=== PATIENT | female | born 1975 | race Caucasian/White ===

== ENCOUNTER 2017-01-13 10:06 | Emergency (ER) | payer SELFPAY ==
[2017-01-13 11:47] VITALS: BP 112/57
[2017-01-13] MEDS ORDERED: Ibuprofen TAB* 600 MG PO ONE (11:57)
--- NOTE | 2017-01-13 12:10 | UC ---
Ear Complaint HPI - HPI Summary HPI Summary: Had fever and congestion, dx with influenza here at 3 days ago. Since then has had increasing L ear pain and productive cough. Continues to have elevated temperature today, pain is uncontrolled. - History of Current Complaint Chief Complaint: UCEar Stated Complaint: LEFT EAR PAIN Time Seen by Provider: 01/13/17 11:40 Hx Obtained From: Patient Hx Last Menstrual Period: 12/23/16 ?: No Onset/Duration: Gradual Onset, Lasting Days Severity Initially: Mild Severity Currently: Moderate Associated Signs/Symptoms: Positive: Hearing Loss, URI Symptoms - Allergies/Home Medications Allergies/Adverse Reactions: Allergies Allergy/AdvReac Type Severity Reaction Status Date / Time Acetaminophen [From Vicodin] Allergy Severe Anaphylatic Verified 01/13/17 11:40 Shock Codeine Allergy Severe Anaphylatic Verified 01/13/17 11:40 Shock Hydrocodone [From Vicodin] Allergy Severe Anaphylatic Verified 01/13/17 11:40 Shock Morphine and Related Allergy Severe Anaphylatic Verified 01/13/17 11:40 Shock Propoxyphene [From Darvon] Allergy Severe Anaphylatic Verified 01/13/17 11:40 Shock Macrolides Allergy Unknown Unknown Verified 01/13/17 11:40 Reaction Details Erythromycin AdvReac Severe Anaphylatic Verified 01/13/17 11:40 Shock Home Medications: Home Medications Ibuprofen TAB* [Advil TAB*] 400 mg PO Q6H PRN 01/13/17 [History Confirmed ] PMH/Surg Hx/FS Hx/Imm Hx Respiratory History Of: Reports: Asthma - Surgical History Surgical History: Yes Surgery Procedure, Year, and Place: EXCISION [facility] - Family History Known Family History: Negative: Blood Disorder - Social History Alcohol Use: Daily Alcohol Amount: 8 beers a day Substance Use Type: None Smoking Status (MU): Heavy Every Day Tobacco Smoker Type: Cigarettes Amount Used/How Often: 1 PPD Have You Smoked in the Last Year: Yes Household Exposure Type: Cigarettes - Immunization History Most Recent Influenza Vaccination: TWO WEEKS AGO Review of Systems Constitutional: Fever Skin: Negative Eyes: Negative ENT: Ear Ache Respiratory: Cough Cardiovascular: Negative Gastrointestinal: Negative Genitourinary: Negative Motor: Negative Neurovascular: Negative Musculoskeletal: Negative Neurological: Negative Psychological: Negative All Other Systems Reviewed And Are Negative: Yes Physical Exam Triage Information Reviewed: Yes Appearance: Pain Distress, Thin Vital Signs: Initial Vital Signs Temp 100.4 F 01/13/17 11:41 Pulse 102 01/13/17 11:41 Resp 18 01/13/17 11:41 BP 112/57 01/13/17 11:41 Pulse Ox 97 01/13/17 11:41 Vital Signs Reviewed: Yes Eye Exam: Normal Eyes: Positive: Conjunctiva Clear ENT: Positive: TM bulging - L, TM dull - L, TM red - L, Other: - R TM obstructed by cerumen Dental Exam: Normal Neck exam: Normal Respiratory Exam: Normal Respiratory: Positive: Chest non-tender, Lungs clear, Normal breath sounds, No respiratory distress, No accessory muscle use Cardiovascular: Positive: Tachycardia Musculoskeletal Exam: Normal Neurological Exam: Normal Neurological: Positive: Alert Psychological Exam: Other - weepy Skin Exam: Normal Ear Complaint Course/Dx - Differential Dx/Diagnosis Provider Diagnoses: influenza. L AOM. R cerumen impaction Discharge - Discharge Plan Condition: Stable Disposition: HOME Patient Education Materials: Otitis Media (ED), Influenza (ED) Referrals: Morena Aleman MD [Primary Care Provider] - Additional Instructions: Please get seen again if you are not fever-free with markedly reduced pain within 48 hours.
== END 2017-01-13 12:22 | disposition home or self-care (01) ==
LOC: UCCORT 10:06
DX: J11.1 Influenza due to unidentified influenza virus with other respiratory manifestations (principal); H66.92 Otitis media, unspecified, left ear; H61.21 Impacted cerumen, right ear; J45.909 Unspecified asthma, uncomplicated; Z88.6 Allergy status to analgesic agent; Z88.1 Allergy status to other antibiotic agents; Z88.5 Allergy status to narcotic agent; Z85.820 Personal history of malignant melanoma of skin; F17.210 Nicotine dependence, cigarettes, uncomplicated
CPT/HCPCS: 99212; A9270-GY; G0463

== ENCOUNTER 2017-05-16 13:25 | Emergency (ER) | payer MEDICAID ==
[2017-05-16 13:48] VITALS: BP 133/73
--- NOTE | 2017-05-16 14:32 | UC ---
Respiratory Complaint HPI - HPI Summary HPI Summary: This started with sneezing about 1 wk ago. coughing then started afterwards. she has pain with coughing no sob. she is a smoker.; she denies knowledge of copd but does often need prednisone and albuterol with bronchitis. she does have asthma. - History of Current Complaint Chief Complaint: UCRespiratory Stated Complaint: COUGH Time Seen by Provider: 05/16/17 14:17 Hx Obtained From: Patient Hx Last Menstrual Period: 05/13/17 Onset/Duration: Gradual Onset Timing: Constant Severity Initially: Mild Severity Currently: Moderate Character: Cough: Nonproductive Aggravating Factors: Recumbent Position Associated Signs And Symptoms: Positive: URI, Nasal Congestion - Allergies/Home Medications Allergies/Adverse Reactions: Allergies Allergy/AdvReac Type Severity Reaction Status Date / Time Codeine Allergy Severe Anaphylatic Verified 01/13/17 11:40 Shock Hydrocodone [From Vicodin] Allergy Severe Rash Verified 05/16/17 13:40 Morphine and Related Allergy Severe Airway Verified 05/16/17 13:40 Obstruction Propoxyphene [From Darvon] Allergy Severe Rash And Verified 05/16/17 13:40 Itching Macrolides Allergy Unknown Unknown Verified 05/16/17 13:40 Reaction Details Erythromycin AdvReac Severe Vomiting Verified 05/16/17 13:40 PMH/Surg Hx/FS Hx/Imm Hx Previously Healthy: No - asthma. Respiratory History: Asthma - Surgical History Surgical History: Yes Surgery Procedure, Year, and Place: [facility]CISION [facility] - Family History Known Family History: Positive: Other - no asthma. Negative: Blood Disorder - Social History Alcohol Use: Daily Alcohol Amount: 8 beers a day Substance Use Type: None Smoking Status (MU): Heavy Every Day Tobacco Smoker Type: Cigarettes Amount Used/How Often: 1 PPD Have You Smoked in the Last Year: Yes Household Exposure Type: Cigarettes - Immunization History Most Recent Influenza Vaccination: TWO WEEKS AGO Review of Systems Respiratory: Cough All Other Systems Reviewed And Are Negative: Yes Physical Exam Triage Information Reviewed: Yes Appearance: Well-Appearing, No Pain Distress, Well-Nourished Vital Signs: Initial Vital Signs Temp 98.5 F 05/16/17 13:41 Pulse 91 05/16/17 13:41 Resp 16 05/16/17 13:41 BP 133/73 05/16/17 13:41 Pulse Ox 100 05/16/17 13:41 Vital Signs Reviewed: Yes Eye Exam: Normal ENT Exam: Normal Dental Exam: Normal Neck exam: Normal Respiratory: Positive: Normal breath sounds, No respiratory distress, No accessory muscle use, Wheezing. Negative: Respiratory distress, Crackles, Rhonchi, Stridor Cardiovascular Exam: Normal Abdominal Exam: Normal Musculoskeletal Exam: Normal Neurological Exam: Normal Psychological Exam: Normal Skin Exam: Normal UC Diagnostic Evaluation - Laboratory O2 Sat by Pulse Oximetry: 100 Respiratory Course/Dx - Differential Dx/Diagnosis Differential Diagnosis/HQI/PQRI: Asthma, CHF, Influenza, Laryngitis, Lower Resp Infection, Pneumothorax, Pulmonary Embolism, Tuberculosis Provider Diagnoses: acute bronchitis. Discharge - Discharge Plan Condition: Good Disposition: HOME Prescriptions: Albuterol HFA INHALER* [Ventolin HFA Inhaler*] 1 - 2 puff INH Q4H PRN #1 mdi PRN Reason: Cough DOXYcycline CAP(*) [DOXYcycline 100MG CAP(*)] 100 mg PO BID #20 cap predniSONE TAB* [Deltasone TAB*] 20 mg PO DAILY #20 tab Patient Education Materials: Acute Bronchitis (ED) Referrals: Morena Almean MD [Primary Care Provider] - If Needed
== END 2017-05-16 14:36 | disposition home or self-care (01) ==
LOC: UCCORT 13:25
DX: J20.9 Acute bronchitis, unspecified (principal); Z88.5 Allergy status to narcotic agent; Z88.1 Allergy status to other antibiotic agents; F17.210 Nicotine dependence, cigarettes, uncomplicated
CPT/HCPCS: 99212; G0463

== ENCOUNTER 2018-04-29 13:13 | Emergency (ER) | payer MEDICAID, OTHER ==
[2018-04-29 13:39] VITALS: BP 139/81
--- NOTE | 2018-04-29 13:49 | UC ---
UC General HPI - HPI Summary HPI Summary: pt c/o 4 day hx sore throat, mostly on the L. no fever, acute cough, URI, SOB or fever. Has remote hx of skin melanoma and smokes so worried this could be CA. Requesting referral to Dr Almeida whom cares for her grandmother so he can check her deep throat. - History of Current Complaint Chief Complaint: UCGeneralIllness Stated Complaint: SORE THROAT Time Seen by Provider: 04/29/18 13:39 Hx Obtained From: Patient Hx Last Menstrual Period: 04/29/18 Onset/Duration: Gradual Onset Timing: Constant Pain Intensity: 5 Associated Signs & Symptoms: Positive: Cough - chronic. Negative: Fever, SOB - Allergy/Home Medications Allergies/Adverse Reactions: Allergies Allergy/AdvReac Type Severity Reaction Status Date / Time MS Codeine [Codeine] Allergy Severe Anaphylatic Verified 01/13/17 11:40 Shock MS Hydrocodone [From Vicodin] Allergy Severe Rash Verified 05/16/17 13:40 MS Morphine and Related Allergy Severe Airway Verified 05/16/17 13:40 [Morphine and Related] Obstruction MS Propoxyphene [From Darvon] Allergy Severe Rash And Verified 05/16/17 13:40 Itching MS Macrolides [Macrolides] Allergy Unknown Unknown Verified 05/16/17 13:40 Reaction Details MS Erythromycin AdvReac Severe Vomiting Verified 05/16/17 13:40 [Erythromycin] PMH/Surg Hx/FS Hx/Imm Hx - Additional Past Medical History Additional PMH: skin CA- melanoma, hypoglycemia Respiratory History: Asthma - Surgical History Surgical History: Yes Surgery Procedure, Year, and Place: [facility] - Family History Known Family History: Positive: Other - no asthma. Negative: Blood Disorder - Social History Occupation: Employed Full-time Alcohol Use: Daily Alcohol Amount: 8 beers a day Substance Use Type: None Smoking Status (MU): Heavy Every Day Tobacco Smoker Type: Cigarettes Amount Used/How Often: 1 PPD Have You Smoked in the Last Year: Yes Household Exposure Type: Cigarettes - Immunization History Most Recent Influenza Vaccination: TWO WEEKS AGO Vaccination Up to Date: Yes Review of Systems Constitutional: Negative Skin: Negative Eyes: Negative ENT: Sore Throat Respiratory: Negative Cardiovascular: Negative Gastrointestinal: Negative Genitourinary: Negative Motor: Negative Neurovascular: Negative Musculoskeletal: Negative Neurological: Negative Psychological: Negative Is Patient Immunocompromised?: No All Other Systems Reviewed And Are Negative: Yes Physical Exam Triage Information Reviewed: Yes Appearance: Well-Appearing Vital Signs: Initial Vital Signs Temp 98.4 F 04/29/18 13:30 Pulse 96 04/29/18 13:30 Resp 18 04/29/18 13:30 BP 139/81 04/29/18 13:30 Pulse Ox 100 04/29/18 13:30 Vital Signs Reviewed: Yes Eyes: Positive: Conjunctiva Clear ENT: Positive: Pharyngeal erythema, TMs normal, Uvula midline. Negative: Nasal congestion, Nasal drainage, Tonsillar swelling, Tonsillar exudate, Trismus, Muffled voice, Hoarse voice Neck: Positive: Supple, Tenderness @ - L anterior cervical node that is tender Respiratory: Positive: Lungs clear, No respiratory distress Cardiovascular: Positive: RRR, No Murmur Abdomen Description: Positive: Nontender, No Organomegaly, Soft Bowel Sounds: Positive: Present Musculoskeletal: Positive: ROM Intact Neurological: Positive: Alert Psychological: Positive: Age Appropriate Behavior Skin Exam: Normal Diagnostics - Laboratory Diagnostic Studies Completed/Ordered: rapid strep=neg Course/Dx - Course Course Of Treatment: Mild elevation in BP, pt is anxious because of CA hx and sore throat thus likely visit related. will have recheck on f/u visit. Rapid strep is neg. will refer to Dr almeida for recheck. He was a request from pt. - Differential Dx - Multi-Symptom Provider Diagnoses: sore throat Discharge - Sign-Out/Discharge Documenting (check all that apply): Patient Departure - Discharge Plan Condition: Stable Disposition: HOME Patient Education Materials: Pharyngitis (ED), How to Stop Smoking (ED) Referrals: Morena Aleman MD [Primary Care Provider] - If Needed Milan Almeida MD [Medical Doctor] - As Soon As Possible - Billing Disposition and Condition Condition: STABLE Disposition: Home
== END 2018-04-29 14:17 | disposition home or self-care (01) ==
LOC: UCCORT 13:13
DX: J02.9 Acute pharyngitis, unspecified (principal); Z88.6 Allergy status to analgesic agent; Z88.1 Allergy status to other antibiotic agents; Z88.5 Allergy status to narcotic agent; Z85.820 Personal history of malignant melanoma of skin; F17.210 Nicotine dependence, cigarettes, uncomplicated
CPT/HCPCS: 36415; 86703; 87651; 99211; G0463